=== PATIENT | male | born 1945 | race Caucasian/White ===

== ENCOUNTER 2024-02-09 11:00 | Outpatient (AMB) | payer MEDICARE, SELFPAY ==
--- OUTSIDE RECORDS SUMMARY | 2024-02-09 11:02 | XMS_ITS | Encounter Summary ---
Author Name [facility] [facility] [place] [facility] [place] Address [address] [place] [address] Care Team Providers Care School Crossing Guard Name Role Phone RYAN PEREZ Primary Care Provider Unavailabl e Insurance Providers: All historical and current Section Date Range: From patient's date of to the date document was created. This section includes the names of all active insurance providers for the patient. Insurance Provider Type of Coverage Plan Name Start of Policy Coverage End of Policy Coverage Group Number Member ID Insurance Provider's Telephone Number Policy Yu's Name Patient's Relationship to Policy Yu [facility] MEDICARE SUPPLEMEN NAA MEDEX 2 Aug 16, 2014 [id number] CHELLE MENDOZA HARD PATIENT [facility] MEDICARE SUPPLEMEN NAA [facility] Aug 16, 2014 [id number] CHELLE MENDOZA HARD PATIENT MEDICARE (WNR) MEDICARE (M) PART B June 16, 2012 PART B [id number] CHELLE MENDOZA HARD PATIENT MEDICARE (WNR) MEDICARE (M) PART A Feb 16, 2011 PART A [id number] CHELLE MENDOZA PATIENT Selected Encounter This section includes the information on record at [place] for the Encounter. Date/Time Encounter Type Encounter Description Reason Provider Source May 20, 2023 01:00 PM HEARING AID CHECK BOTH EARS AUDIOLOGY ICD-10-CM Z46.1 Encounter for fitting and adjustment of hearing aid VENTURA BURROUGHS Encounter Template Text not used by [place] Assessments - Encounter Diagnoses This section includes the primary and secondary diagnoses documented for the Encounter. Date/Time Primary/Secondary Diagnosis Diagnosis Name Provider Source May 20, 2023 01:25 PM PRIMARY Encounter for fitting and adjustment of hearing aid NAILA GIRON RUMA [facility] May 20, 2023 01:25 PM SECONDARY Sensorineural hearing loss, bilateral NAILA GIRON RUMA [facility] Plan of Treatment: Future Appointments (+ 6 months) and Future Tests (+/- 45 days) The Plan of Treatment section includes future care activities for the patient from all [place] [facility]. This section includes future appointments and future orders which are active, pending or scheduled. Future Appointments This section includes appointments that were scheduled to occur 6 months from the date of the Encounter, up to a maximum of 20 appointments. The data comes from all [place] treatment facilities. Appointment Date/Time Appointment Type Appointme nt Facility Name Nov 09, 2023 01:00 PM AMBULATORY - REHAB MEDICIN E [facility] Social History: Smoking Status (Most current) and Tobacco Use (All prior to encounter date) This section includes the most current, and the historical, smoking and tobacco- related health factors from the [place] facility where the Encounter took place. Current Smoking Status This section includes the most current smoking, or tobacco-related health factor, from the [place] facility where the Encounter took place. Date/Time Current Smoking Status Comment Dorian ity Feb 22, 2019 10:40 AM [place]-TOBACCO QUIT < 1 YEAR [facility] Tobacco Use History This section includes a history of the smoking, or tobacco-related health factors, that were collected on or before the date of the Encounter. The data comes from the [place] facility where the Encounter took place. Date/Time Smoking Status/Tobacco Use Comment F alicia Feb 22, 2019 10:40 AM [place]-TOBACCO QUIT < 1 YEAR [facility] Encounter Notes: All associated encounter notes This section contains the clinical notes associated to the Encounter. Date/Time Encounter Note(s) Provider Source May 20, 2023 01:17 PM AUDIOLOGY NOTE: LOCAL TITLE: AUDIOLOGY [facility] STANDARD TITLE: AUDIOLOGY NOTE DATE OF NOTE: MAY 20, 2023@13:17 ENTRY DATE: MAY 20, 2023@13:17:53 AUTHOR: ROSALIO GIRON COSIGNER: VENTURA BURROUGHS URGENCY: STATUS: COMPLETED AUDIOLOGY [facility] Has ADDENDA May 20, 2023 History/Background: Dallas was seen for a hearing aid follow up, unaccompanied. Dallas was scheduled today for hearing aid maintenance. Dallas brought in two sets of hearing aids and asked to have them paired up. Hearing aids: [employer] EVOLV AI POWER + BTE 13s Serial Numbers: [id number] Date Issued: 04/16/2022 AND Hearing aids: [employer] IQ i2400 Power+ BTEs Serial Numbers: [id number] Date Issued: 04/22/2019 Hearing aid check: All 4 hearing aids were cleaned and checked. Replaced tubes, tonehooks and microphone covers. Back up aids now have dark brown microphone covers so Dallas can tell them apart. Otoscopy: clear canal right ear and nearly occluding cerumen left ear. stated he is seeing his PCP tomorrow and will ask to have cerumen removed. Plan: RTC order placed for 4-5 mon maintenance on 11/09/2023 @ 1300. /es/ ROSALIO GIRON Audiology Health Tissue Recovery Technician Signed: 05/20/2023 13:26 /jed/ VENTURA Ruiz, [facility]-A CHIEF, AUDIOLOGY/CHIEF ENGINEER WATERWORKS Cosigned: 05/20/2023 13:27 Receipt Acknowledged By: 05/20/2023 13:28 /es/ CAROLYN HAHN SUPERVISORY POKER ROOM MANAGER 05/20/2023 ADDENDUM STATUS: COMPLETED Suicide Screen: C-SSRS Screening [place]-Suicide Severity Rating Scale (C-SSRS Screener) 1. Over the past month, have you wished you were or wished you could go to sleep and not wake up? No 2. Over the past month, have you had any actual thoughts of killing yourself? No 3. Over the past month, have you been thinking about how you might do this? Response not required due to responses to other questions. 4. Over the past month, have you had these thoughts and had some intention of acting on them? Response not required due to responses to other questions. 5. Over the past month, have you started to work out or worked out the details of how to kill yourself? Response not required due to responses to other questions. 6. If yes, at any time in the past month did you intend to carry out this plan? Response not required due to responses to other questions. 7. In your lifetime, have you ever done anything, started to do anything, or prepared to do anything to end your life (for example, collected pills, obtained a gun, gave away valuables, went to the roof but didn't jump)? No 8. If YES, was this within the past 3 months? Response not required due to responses to other questions. /jed/ ROSALIO GIRON Audiology Health Tissue Recovery Technician Signed: 05/20/2023 13:27 /jed/ VENTURA Ruiz, [facility]-A CHIEF, AUDIOLOGY/CHIEF ENGINEER WATERWORKS Cosigned: 05/21/2023 13:39 ROSALIO GIRONRBrandon ADAIR [facility]
--- OUTSIDE RECORDS SUMMARY | 2024-02-09 11:02 | XMS_ITS ---
Author Name [facility] [place] [facility] Address [address] [place] [address] Care Team Providers Care Agency Director Name Role Phone RYAN PEREZ Primary Care [...] Yu's Name Patient's Relationship to Policy Yu [facility] MEDICARE SUPPLEMEN NAA MEDEX 2 Aug 16, 2014 [id number] CHELLE MENDOZA HARD PATIENT [facility] MEDICARE SUPPLEMEN NAA [facility] Aug 16, 2014 [id number] [phone] CHELLE MENDOZA HARD PATIENT MEDICARE (WNR) MEDICARE (M) PART B June 16, 2012 PART B [id number] CHELLE MENDOZA HARD PATIENT MEDICARE (WNR) MEDICARE (M) PART A Feb 16, 2011 PART A [id number] [phone] CHELLE MENDOZA PATIENT Selected Encounter This section includes the information on record at [place] for the Encounter. Date/Time Encounter Type Encounter Description Reason Provider Source Nov 09, 2023 01:00 PM HEARING AID REPAIR/MODIFYIN G AUDIOLOGY ICD-10-CM Z46.1 Encounter for fitting and adjustment of hearing aid SHANI HE Sade Encounter Template Text not used by [place] Assessments - Encounter Diagnoses This section includes the primary and secondary diagnoses documented for the Encounter. Date/Time Primary/Secondary Diagnosis Diagnosis Name Provider Source Nov 09, 2023 01:23 PM PRIMARY Encounter for fitting and adjustment of hearing aid NAILA GIRON RUMA [facility] Nov 09, 2023 01:23 PM SECONDARY Sensorineural hearing loss, bilateral NAILA GIRON RUMA [facility] Plan of Treatment: Future Appointments (+ 6 months) and Future Tests (+/- 45 days) The Plan of Treatment section includes future care activities for the patient from all [place] [facility]. This section includes future appointments and future orders which are active, pending or scheduled. Future Appointments This section includes appointments that were scheduled to occur 6 months from the date of the Encounter, up to a maximum of 20 appointments. The data comes from all [place] treatment facilities. Appointment Date/Time Appointment Type Appointme nt Facility Name Apr 18, 2024 01:00 PM AMBULATORY - REHAB MEDICIN E [facility] Social History: Smoking Status (Most current) and Tobacco Use (All prior to encounter date) This section includes the most current, and the historical, smoking and tobacco- related health factors from the [place] facility where the Encounter took place. Current Smoking Status This section includes the most current smoking, or tobacco-related health factor, from the [place] facility where the Encounter took place. Date/Time Current Smoking Status Comment Facil ity Feb 22, 2019 10:40 AM [place]-TOBACCO QUIT < 1 YEAR [facility] Tobacco Use History This section includes a history of the smoking, or tobacco-related health factors, that were collected on or before the date of the Encounter. The data comes from the [place] facility where the Encounter took place. Date/Time Smoking Status/Tobacco Use Comment F acyosi Feb 22, 2019 10:40 AM [place]-TOBACCO QUIT < 1 YEAR [facility] Encounter Notes: All associated encounter notes This section contains the clinical notes associated to the Encounter. Date/Time Encounter Note(s) Provider Source Nov 09, 2023 07:55 AM AUDIOLOGY NOTE: LOCAL TITLE: AUDIOLOGY HEALTH FEEDER WORKER POWER UNIT OPERATOR STANDARD TITLE: AUDIOLOGY NOTE DATE OF NOTE: NOV 09, 2023@07:55 ENTRY DATE: NOV 09, 2023@07:55:44 AUTHOR: ROSALIO GIRON COSIGNER: SHANI HE URGENCY: STATUS: COMPLETED November 09, 2023 History/Background: was seen for a hearing aid follow up, unaccompanied. The presented today for routine maintenance on his hearing aids. Hearing aids: [employer] EVOLV AI POWER + BTEs Serial Numbers: [id number] Battery Size: 13 Date Issued: 04/16/2022 AND Hearing aids: [employer] IQ i2400 Power+ BTEs Serial Numbers: [id number] Battery Size: 13 Date Issued: 04/22/2019 Hearing aid check: Both sets of hearing aids were cleaned and checked. Replaced TRS tubes, tonehooks, mlacolm covers and batteries. Biologic check was good. Battery supply was ordered today per Veterans request. Plan: The [place] was scheduled for routine maintenance on 04.18.2024 @ 1300. RTC ordered entered. /jed/ ROSALIO GIRON Audiology Health Data Integration Analyst Signed: 11/09/2023 13:25 /jed/ Torie Pimentel CCC-A Paint Sprayer Sandblaster Cosigned: 11/09/2023 14:29 Receipt Acknowledged By: 11/09/2023 14:44 /jed/ CAROLYN HAHN SUPERVISORY TOURIST HOME KEEPER ROSALIO GIRON [facility]
--- OUTSIDE RECORDS SUMMARY | 2024-02-09 11:02 | XMS_ITS | Continuity of Care Document ---
Author Name [facility] Organization [facility] Care Team Providers Care Product Safety Associate Name Role Phone [facility] Unavailable Unavailable Problems Combined list of problems from Department of [facility] and [facility] facilities. It does not include entries that were removed or entered in error. Problem Status Onset Date Problem Type Date of Resolution Comments Source Carcinoma of lung Active Condition Mar 03, 2019 Entered By: VIRGINIA PEREZ Comment: patient has right upper lobe lobectomy in 2012 [facility] Chronic obstructive lung disease Active Condition Mar 03, 2019 Entered By: VIRGINIA PEREZ Comment: stage 2 [facility] Hearing loss Active Condition [facility] Diagnosis: ICD-10-CM Z46.1 Encounter for fitting and adjustment of hearing aid Active Diagnosis [facility] Medications Combined list of outpatient medications from Department of [facility] and [facility] facilities.Medications provided include 1) outpatient medications from the last 15 months, and 2) patient-reported medications. Medication Details Route Status Patient Instructions Prescription Expires Prescription Number Last Dispense Date Ordering Provider Order Date Order Qty Source FLUTICASONE 100/UMECLID INIUM 62.5/VILANT JUANIS 25MCG/ACTUA T INH,30 INHALE 1 INHALATI ON BY MOUTH ONCE DAILY RESPIR ATORY (INHAL ATION) ACTIVE ALAYNA PEREZ [address] [facility] Immunizations Combined list of available immunizations from the Department of [facility] and [facility] facilities. Immunization Series Date Given Administered By Site Reaction Lot Number CVX Code Drug Seed Yeast Operator Status Comments Source COVID-19 (Optimizely), MRNA, LNP-S, PF, 30 MCG/0.3 ML DOSE 2 2020 208 complet ed PFR; [id number]; [address] [facility] COVID-19 (PFIZER), MRNA, LNP-S, PF, 30 MCG/0.3 ML DOSE 1 2020 208 complet ed PFR; [id number]; [address] [facility] INFLUENZA, SEASONAL, INJECTABLE [address] [facility] Encounters Combined list of: 1) Encounters from Department of [facility] facilities going back up to thelast 18 months. 2) Encounters from the Department of [facility] facilities going back up to 280 months. Location Location Details Encounter Type Encounter Number Reason For Visit Attending Provider ADM Date DC Date Status Disposition Source [facility] HEARING AID CHECK BOTH EARS [id number] [id number] Diagnos is: ICD-10- CM Z46.1 Encount er for fitting and adjustm ent of hearing aid<br/ > ADAM BURROUGHS L 05/19 [facility] HEARING AID REPAIR/MOD IFYING [id number] Diagnos is: ICD-10- CM Z46.1 Encount er for fitting and adjustm ent of hearing aid<br/ > KRISTINA HE L 11/[address] [facility] Social History Combined list of available smoking, tobacco, and other social history from [facility] and [facility] facilities. Social History Type Response Date Comment Sourc e Tobacco smoking status NHIS [place]-TOBACCO QUIT < 1 YEAR 02/22/2019 [facility] History of tobacco use [place]-TOBACCO FORMER USER 02/22/2019 [facility] Plan of Care List of future care activities from Department of [facility] facilities. Additional future care activities may be listed in the Assessment and Plan section. Date/Time Care Activity Care Activity Detail Facili ty 04/18/2024 AMBULATORY - REHAB MEDICINE AMBULATORY - REHAB MEDICINE [facility]
--- NOTE | 2024-02-09 11:05 | MHC.OFFVIS ---
Intake Visit Reasons: Prostate Ca/HX UTI,Retention,BPH Intake Note: Patient is present for PROSTATE ca/hx UTI,retention,bph Urology Medication:none Antibiotic Allergy:penicillin Blood Thinner:none TODAY'S PVR:11MLS Copy Worker Required: No Allergies Penicillins Allergy (Mild, Verified 02/09/24 11:06) Unknown HPI Comments Details: Steven is a pleasant male. He is a patient of Dr Rice. He is seen for the following urologic conditions. - urinary incontinence - advanced prostate cancer Here for 2nd opinion Urinary incontinence following BPH Procedure Using 3-4 pads per day Had been offered artificial sphincter placement by another urologist Based on the patient's age, manual dexterity, and future care needs use of an artificial sphincter in the over 75-year-old age group is associated with increased risk of adverse outcomes and difficulty with sphincter cycling We discussed artificial sling If he has any coaptation of his external prostatic sphincter the sling is likely to drop pad use from 3-4 down to 1-2 He does report dryness overnight Has dry periods during the day Advanced prostate cancer - SPC Managed on combination antiandrogen and GnRH Obtains antiandrogen through [employer] oncology [facility] Medical History (Updated 02/15/24 @ 10:59 by Brian Fuhcs MD) Alcohol abuse, in remission Gonzalez's palsy Migraine headache COPD (chronic obstructive pulmonary disease) Hearing loss Warts UTI (urinary tract infection) H/O urinary retention History of urinary frequency Prostate cancer Peyronie's disease Dysuria Nodular prostate BPH loc w urin obs/LUTS Constipation Bladder outlet obstruction Hyperactivity of bladder Surgical History (Updated 02/03/24 @ 11:36 by PRESTON Gilbert) History of arthroplasty of right shoulder History of bowel resection History of tonsillectomy History of eye surgery S/P TURP (status post transurethral resection of prostate) Social History (Updated 02/03/24 @ 11:37 by PRESTON Gilbert) Alcohol intake: former Comment: recovering Patient Tobacco Use Status: Former Tobacco user Review of Systems Const Denies chills and Denies fever(s) Card Reports no additional complaints and Denies syncope Resp Denies cough GI Denies abdominal pain and Denies heartburn Reports as per HPI and Denies change in libido Neuro Denies syncope Psych Denies change in libido Endo Denies change in libido Physical Exam Const General: cooperative, healthy appearing, comfortable and no acute distress Orientation/consciousness: patient oriented x3 HEENT Face and sinus: Yes normal facial exam Mouth: moist mucous membranes Neck Neck: Yes normal visual inspection, Yes full ROM and Yes trachea midline Chest Chest palpation & inspection: normal inspection of the chest Resp Effort & Inspection: normal respiratory effort, able to speak in complete sentences and no respiratory distress GI Inspection: Yes normal to inspection Back/Spine/Pelvis Cervical Spine: normal cervical lordosis Thoracic/Lumbar Spine: thoracic and lumbar spine normal to inspection Skin General skin exam: no rashes or lesions noted Neuro General: patient oriented x3, gait normal, tone normal and moves all extremities Extrem General: Yes normal to inspection and Yes capillary refill normal Office Procedures Post Void Residual Post Residual Void Post Void Residual (PVR): 0 71818-Dqew Void Residual by ultrasound Post Void Residual Post Residual Void Post Void Residual (PVR): 11 70814-Kwal Void Residual by ultrasound Results AMB Urinalysis, Automated UA Leukoctes 0 Tania/uL Last Edit by YAHAIRA Schmitt on 02/09/24 11:35 UA Leukoctes previously reported as 70 Demario Nova 02/09/24 11:35 UA Nitrite Negative Last Edit by YAHAIRA Schmitt on 02/09/24 11:28 UA Urobilinogen 1 mg/dL Last Edit by YAHAIRA Schmitt on 02/09/24 11:35 UA Urobilinogen previously reported as 0.2 Demario Nova 02/09/24 11:35 UA Protein 15 mg/dL Last Edit by YAHAIRA Schmitt on 02/09/24 11:35 UA Protein previously reported as 30 Demario Nova 02/09/24 11:35 UA pH 6.0 Last Edit by YAHAIRA Schmitt on 02/09/24 11:28 UA Blood 0 Taras/uL Last Edit by YAHAIRA Schmitt on 02/09/24 11:35 UA Blood previously reported as 80 Demario Nova 02/09/24 11:35 UA Specific Denhoff 1.025 Last Edit by YAHAIRA Schmitt on 02/09/24 11:35 UA Specific Denhoff previously reported as 1.015 Demario Nova 02/09/24 11:35 UA Ketone Positive Last Edit by YAHAIRA Schmitt on 02/09/24 11:35 UA Ketone previously reported as Negative Demario Nova 02/09/24 11:35 UA Bilirubin 0 mg/dL Last Edit by YAHAIRA Schmitt on 02/09/24 11:28 UA Glucose 0 mg/dL Last Edit by YAHAIRA Schmitt on 02/09/24 11:35 UA Glucose previously reported as 1000 Demario Nova 02/09/24 11:35 Results Reviewed Results Reviewed: Laboratory Last Values Urine pH (Auto) 6.0 02/09/24 11:27 Specific Denhoff (Auto) 1.025 02/09/24 11:27 Urine Protein (Auto) 15 mg/dL 02/09/24 11:27 Glucose (UA)(Auto) 0 mg/dL 02/09/24 11:27 Urine Ketones (Auto) Positive 02/09/24 11:27 Urine Blood (Auto) 0 Taras/uL 02/09/24 11:27 Urine Nitrite (Auto) Negative 02/09/24 11:27 Urine Bilirubin (Auto) 0 mg/dL 02/09/24 11:27 Urine Urobilinogen (Auto) 1 mg/dL 02/09/24 11:27 Leukocyte Esterase (Auto) 0 Tania/uL 02/09/24 11:27 Assessment & Plan Assessment & Plan (1) Urinary incontinence: Code(s): R32 - Unspecified urinary incontinence Category: Medical Plan Office cystoscopy Consider sling procedure Orders: Orders AMB Urinalysis Automated 02/09/24 Z13.9 - Encounter for screening, unspecified Patient Instructions: Imaging studies, laboratory and physical exam results were discussed and reviewed in detail. No major barriers to patient understanding were identified. An opportunity to ask questions regarding the treatment plan was provided. All questions were answered. The patient expressed understanding and agreement with the above treatment plan. The patient is aware they should contact our office by phone for worsening of their current condition or the appearance of new urologic symptoms. Compliance is encouraged with any medications and followup testing that is ordered. It is a privilege to participate in the urologic care of your patient. If you have any questions or concerns regarding treatment for the above conditions, or other urologic issues, please do not hesitate to contact me. The office telephone contact is [phone]. This note is constructed using voice recognition software. While every effort has been made to ensure accuracy mechanical ordnance assembler errors may have been included. Yours sincerely, Dr Brian Fuchs MD, [facility] - Urology Providers of Expert, Compassionate Care for the Genitourinary System Coding Level of Care Code New Pt Level 4 (33588) Diagnoses Urinary incontinence R32 CPT Codes Post Residual Void - PVR CPT Code: 91259-Mfpz Void Residual by ultrasound ([id number]) Post Residual Void - PVR CPT Code: 08021-Niec Void Residual by ultrasound ([id number])
== END 2024-02-09 12:17 | disposition home or self-care (01) ==
PROVIDERS: PCP Internal Medicine; Visit Provider Urology
DX: Z13.9 Encounter for screening, unspecified (principal)

== ENCOUNTER → 2024-02-09 11:00 | Outpatient (BNVA) | payer MEDICARE, SELFPAY | PROVIDERS: PCP Internal Medicine; Visit Provider Urology | DX: C61 Malignant neoplasm of prostate (principal); N40.1 Benign prostatic hyperplasia with lower urinary tract symptoms; N13.8 Other obstructive and reflux uropathy; R33.8 Other retention of urine; R32 Unspecified urinary incontinence | CPT/HCPCS: 51798; 81003; 99202 ==

== ENCOUNTER 2024-03-29 10:47 | Outpatient (AMB) | payer MEDICARE, SELFPAY ==
--- NOTE | 2024-03-29 10:47 | A.OFFVIS_ITS ---
Intake Visit Reasons: Cysto/Discuss Sling Procedure Intake Note: Patient is present for Cystoscopy/DISCUSS SLING PROCEDURE Urology Medication:NONE Antibiotic Allergy:PENICILLIN Blood Thinner:NONE Lot:[id number] Exp:12/20/26 Purchasing Contracting Clerk Required: No Allergies Penicillins Allergy (Mild, Verified 03/29/24 10:49) Unknown HPI Comments Details: Steven is a pleasant male. He is a patient of Dr Rice. He is seen for the following urologic conditions. - urinary incontinence - advanced prostate cancer Here for cystoscopy Able to partially coapted external urethral sphincter Recommend artificial sling placement Did have limited amount of radiation exposure to prostate prior to TURP (12 of 40 sessions) ability for that Elicia ROCA, Sharon B, Vannessa Borrero. AdVance male sling in irradiated patients with stress urinary incontinence. Can J Urol. 2010;18(6):6013-7. PMID: [id number]. Urinary incontinence following BPH Procedure Using 3-4 pads per day Had been offered artificial sphincter placement by another urologist Based on the patient's age, manual dexterity, and future care needs use of an artificial sphincter in the over 75-year-old age group is associated with increased risk of adverse outcomes and difficulty with sphincter cycling We discussed artificial sling If he has any coaptation of his external prostatic sphincter the sling is likely to drop pad use from 3-4 down to 1-2 He does report dryness overnight Has dry periods during the day Advanced prostate cancer - SP Managed on combination antiandrogen and GnRH Obtains antiandrogen through [facility] oncology Initially had been treated with radiation but only tolerated 12 doses [facility] Medical History (Updated 03/29/24 @ 12:35 by Brian Fuchs MD) Alcohol abuse, in remission Gonzalez's palsy Migraine headache COPD (chronic obstructive pulmonary disease) Hearing loss Warts UTI (urinary tract infection) H/O urinary retention History of urinary frequency Prostate cancer Peyronie's disease Dysuria Nodular prostate BPH loc w urin obs/LUTS Constipation Bladder outlet obstruction Hyperactivity of bladder Surgical History (Updated 02/03/24 @ 11:36 by PRESTON Gilbert) History of arthroplasty of right shoulder History of bowel resection History of tonsillectomy History of eye surgery S/P TURP (status post transurethral resection of prostate) Social History (Updated 02/03/24 @ 11:37 by PRESTON Gilbert) Alcohol intake: former Comment: recovering Patient Tobacco Use Status: Former Tobacco user Review of Systems Const Denies chills and Denies fever(s) Card Reports no additional complaints and Denies syncope Resp Denies cough GI Denies abdominal pain and Denies heartburn Reports as per HPI and Denies change in libido Neuro Denies syncope Psych Denies change in libido Endo Denies change in libido Physical Exam Const General: cooperative, healthy appearing, comfortable and no acute distress Orientation/consciousness: patient oriented x3 HEENT Face and sinus: Yes normal facial exam Mouth: moist mucous membranes Neck Neck: Yes normal visual inspection, Yes full ROM and Yes trachea midline Chest Chest palpation & inspection: normal inspection of the chest Resp Effort & Inspection: normal respiratory effort, able to speak in complete sentences and no respiratory distress GI Inspection: Yes normal to inspection Back/Spine/Pelvis Cervical Spine: normal cervical lordosis Thoracic/Lumbar Spine: thoracic and lumbar spine normal to inspection Skin General skin exam: no rashes or lesions noted Neuro General: patient oriented x3, gait normal, tone normal and moves all extremities Extrem General: Yes normal to inspection and Yes capillary refill normal Office Procedures Cystoscopy Consent Discussed risk and benefit or proposed procedure with the patient. Information consent for procedure given to the patient. Discussed technical aspects, risks, benefits and alternatives in full. Addressed all of the patient's questions and concerns regarding the procedure. The patient demonstrated knowledge and understanding. They wish to proceed with this procedure. Preparation The patient was prepped in the usual manner. A childcare center director was present and in the room. Genitalia was prepped with betadine solution in a sterile manner. Lidocaine Jelly 2% was placed into the urethra and 16Fr flexible Olympus cystoscope was inserted into the meatus after adequate lubrication. Procedure No abnormality of the anterior posterior urethra. Mild narrowing at prostatic apex Able to partially clamped external urethral sphincter [id number] DISPOSABLE SCOPE URO-G FLEXIBLE SCOPE Procedure code (CPT) selection complete Office Meds lidocaine HCl 2 % mucosal jelly in applicator Performing Provider: Brian Fuchs MD [place] Administered by: Jelani Ross LPN on 03/29/24 11:26 Dose Route Admin Location Dispensed Lot Number Expiration Date [facility] Hydrography Teacher 10 mL intra-urethral 10 mL nitrofurantoin monohydrate/macrocrystals 100 mg capsule Performing Provider: Brian Fuchs MD [place] [facility] Administered by: Jelani Ross LPN on 03/29/24 11:26 Dose Route Admin Location Dispensed Lot Number Expiration Date [facility] Hydrography Teacher 100 mg PO 1 cap Results AMB Urinalysis, Automated UA Leukoctes 0 Tania/uL Last Edit by YAHAIRA Schmitt on 03/29/24 11:46 UA Nitrite Negative Last Edit by YAHAIRA Schmitt on 03/29/24 11:46 UA Urobilinogen 3.5 mg/dL Last Edit by YAHAIRA Schmitt on 03/29/24 11:4 6 UA Protein 15 mg/dL Last Edit by YAHAIRA Schmitt on 03/29/24 11:46 UA pH 6.0 Last Edit by YAHAIRA Schmitt on 03/29/24 11:46 UA Blood 0 Taras/uL Last Edit by YAHAIRA Schmitt on 03/29/24 11:46 UA Specific [place] 1.015 Last Edit by YAHAIRA Schmitt on 03/29/24 11: 46 UA Ketone Negative Last Edit by YAHAIRA Schmitt on 03/29/24 11:46 UA Bilirubin 0 mg/dL Last Edit by YAHAIRA Schmitt on 03/29/24 11:46 UA Glucose 0 mg/dL Last Edit by YAHAIRA Schmitt on 03/29/24 11:46 Assessment & Plan Assessment & Plan (1) Urinary incontinence: Code(s): R32 - Unspecified urinary incontinence Category: Medical (2) Stress incontinence after surgical procedure: Code(s): N99.89 - Other postprocedural complications and disorders of genitourinary system; N39.3 - Stress incontinence (female) (male) Category: Medical Plan Risks, benefits and alternatives to therapy were discussed. These include but are not limited to infection, bleeding, damage to local organs and tissues, need for further interventions. Anesthetic risks regarding cardiac arrhythmia, blood clots, and potential mortality were discussed. The patient understands the typical recovery time and the outpatient nature of the procedure. After consideration of these risks the patient gives full informed consent and they wish to move ahead with the procedure. - male sling placement Orders: Orders AMB Cystoscopy Today R32 - Unspecified urinary incontinence AMB Urinalysis Automated Today Z13.9 - Encounter for screening, unspecified Patient Instructions: This note is constructed using voice recognition software. While every effort has been made to ensure accuracy pocketed spring machine operator errors may have been included. Imaging studies, laboratory and physical exam results were discussed and r eviewed in detail. No major barriers to patient understanding were identified. An opportunity to ask questions regarding the treatment plan was provided. All questions were answered. The patient expressed understanding and agreement with the above treatment plan. The patient is aware they should contact our office by phone for worsening of their current condition or the appearance of new urologic symptoms. Compliance is encouraged with any medications and followup testing that is ordered. It is a privilege to participate in the urologic care of your patient. If you have any questions or concerns regarding treatment for the above conditions, or other urologic issues, please do not hesitate to contact me. The office telephone contact is [phone]. Sincerely, Dr Brian Fuchs MD, [facility] - Urology Compassionate Specialist Care for the Genitourinary System Coding Level of Care Code Est Pt Level 4 (58018) Diagnoses Urinary incontinence R32 Stress incontinence after surgical procedure N99.89; N39.3 CPT Codes Cystoscopy - CPT: 22523-[id number] ([id number])
--- OUTSIDE RECORDS SUMMARY | 2024-03-29 12:04 | XMS_ITS | Data Portability ---
Author Organization [facility], [facility] Address [address] [place] [address] Care Team Providers Care Concessions Manager Name Role Phone DIEGO RODRIGUEZ Primary Care Provider [phone] Assessment No assessment recorded. Plan of Treatment Reminders Order Date Submit Date Provider Last Modified By Organization Details Last Modified Time Details Appointments RECHECK 15 2024 10:45A M Dav Kathleen PA-C Not available Not available Not available Lab None recorded . Referral None recorded . Procedures None recorded . Surgeries None recorded . Imaging None recorded . Medication Orders None recorded . Patient TargetsNo targets recorded. Patient InstructionsNo instructions recorded. Reason for Referral None Reported. 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 Procedures Surgical History Date Name Laterality Status Provider Name and Address Organization Details Recorded Time 4 PM Shoulder Kenalog 2cc Injection Unilateral cancelled Hema Sierra MD [address], [place], [address], [facility] - [facility] 11/26/2023 07:55:02 4 Hip Kenalog 1cc Injection, Bilateral completed Dav Kathleen PA-C [address], [place], [address], [facility] 11/26/2023 16:22:53 4 Sports Shoulder 4&1 completed Dav Kathleen PA-C [address], [place], [address], [facility] 11/26/2023 16:22:38 Imaging Results None recorded. Procedure Notes None recorded. Medical Equipment None Reported. Allergies Allergen ID Allergen Name Allergen Category Reaction Reaction Severity Criticality Documentation Date Start Date Code Code System Note Provider Name and Address Organization Details Recorded Time 73767 Zoloft medicatio n Not available Not available Not available 04/20/20232005 91543 RxNorm Not Available [facility] 4 15:13:16 91083 Product containin g penicilli n and antibioti c (product) medicatio n Not available Not available Not available 04/20/20232021 38705 05 SNOMED Not Available [facility] 4 15:13:16 Medications Name Sig Start Date Stop Date Status Note LastModified by Organization Details LastModified Time atorvastati n 80 mg tablet TAKE 1 TABLET BY MOUTH DAILY AT BEDTIME,X 30 DAYS active Not Available Not Available No t Available carvedilol 6.25 mg tablet TAKE 1 TABLET BY MOUTH TWICE A DAY WITH FOOD FOR 30 DAYS active Not Available Not Available No t Available prednisone 10 mg tablet PLEASE SEE ATTACHED FOR DETAILED DIRECTION S active Not Available Not Available No t Available ipratropium 0.5 mg-albutero l 3 mg (2.5 mg base)/3 mL nebulizatio n soln TAKE 1 NEBULIZER (INHALATI ON) EVERY 6 HOURS NEEDED FOR TROUBLED BREATHING active Not Available Not Available No t Available cetirizine 10 mg tablet PLEASE SEE ATTACHED FOR DETAILED DIRECTION S active Not Available Not Available No t Available azithromyci n 250 mg tablet TAKE 2 TABLETS BY MOUTH TODAY, THEN TAKE 1 TABLET DAILY FOR 4 DAYS DIRECTED active Not Available Not Available No t Available benzonatate 200 mg capsule TAKE 1 CAPSULE NEEDED ORALLY THREE TIMES A DAY NEEDED 5 DAYS active Not Available Not Available No t Available prochlorper azine maleate 5 mg tablet TAKE 1 TABLET BY MOUTH EVERY 6 HOURS NEEDED FOR NAUSEA active Not Available Not Available No t Available prednisone 20 mg tablet TAKE 2 TABLETS BY MOUTH EVERY DAY FOR 5 DAYS active Not Available Not Available No t Available isosorbide mononitrate ER 30 mg tablet,exte nded release 24 hr TAKE 1 TABLET BY MOUTH EVERY DAY IN THE MORNING active Not Available Not Available No t Available chlorthalid one 25 mg tablet TAKE 1 TABLET BY MOUTH EVERY DAY IN THE MORNING WITH FOOD active Not Available Not Available No t Available ciprofloxac in 500 mg tablet TAKE ONE TABLET BY MOUTH TWICE A DAY FOR 14 DAYS. active Not Available Not Available No t Available sulfamethox azole 800 mg-trimetho prim 160 mg tablet TAKE 1 TABLET BY MOUTH TWICE A DAY FOR 5 DAYS active Not Available Not Available No t Available pseudoephed rine-guaife nesin ER 80-700 mg tablet,exte nded release Percocet 5-325MG Tablet 1 every 4 - 6 hours as needed 03/01 completed Statu s: 'Disc ontin ued'; Not Available Not Available Not Available prednisone 50 mg tablet TAKE 1 TABLET BY MOUTH EVERY DAY FOR 4 DAYS active Not Available Not Available No t Available nitroglycer in 0.4 mg sublingual tablet PLEASE SEE ATTACHED FOR DETAILED DIRECTION S active Not Available Not Available No t Available albuterol sulfate HFA 90 mcg/actuati on aerosol inhaler INHALE 2 PUFFS INHALATIO N EVERY 4 HOURS, NEEDED WHEEZING/ SHORTNESS OF BREATH active Not Available Not Available No t Available methylpredn isolone 16 mg tablet PLEASE SEE ATTACHED FOR DETAILED DIRECTION S active Not Available Not Available No t Available calcium 600 mg (as carbonate)- vitamin D3 10 mcg (400 unit) tablet TAKE 1 TABLET BY MOUTH TWICE A DAY active Not Available Not Available No t Available oxycodone HCl-oxycodo ne-ASA RX GIVEN AT [facility], AT TIME OF SURGERY 03/01 completed Statu s: 'Disc ontin ued'; Not Available Not Available Not Available Xtandi 40 mg capsule active Not Available Not Available N ot Available potassium chloride ER 20 mEq tablet,exte nded release TAKE 1 TABLET BY MOUTH TWICE A DAY FOR 3 DAYS active Not Available Not Available No t Available Bevespi Aerosphere 9 mcg-4.8 mcg HFA aerosol inhaler 2 PUFFS INHALATIO N EVERY 12 HOURS active Not Available Not Available No t Available Vitals Date Recorded Body height Provider Name an d Address Organization Details Last Updated DateTime 11/26/2023 180.34 cm TESSA Sullivan [address], [place], [address], [place] - [facility] 11/26/2023 14:34:00 Date Recorded Body height Body mass index (BMI) Body weight Provider Name and Address Organization Details Last Updated DateTime 03/28/2024 180.34 cm 24.7 kg/m2 34837.85 g Selena Farias [facility] 03/28/2024 13:59:10 Social History None recorded. Functional Status None recorded. Mental Status None recorded. Family History Nothing Reported. Medical History No medical history recorded. Past Encounters Encounter ID Performer Location Encounter Start Date Encounter Closed Date Diagnosis/Indication Diagnosis SNOMED-CT Code Diagnosis ICD10 Code Diagnosis Note [id number] [facility] [address] [place] [address] 11/26/2023 14:18:48 12/22/2023 09:07:04 Impingement syndrome of right shoulder region [id number] 11045 M75.41 Trochanter ic bursitis of right hip 6654132425 99662 M70.61 Trochanter ic bursitis of left hip 9049583069 93507 M70.62 Health Concerns Section Related Observation LastModified by Organization Detai ls LastModified Time None Recorded Concern Status LastModified by Organization Details LastModified Time None Recorded Advance Directives Directive None Recorded Payers Encounter Date Sequence Insurance Name Policy Number Policy Yu Covered Member ID Yu Member ID Guarantor Name 11/26/2023 1 [place] [employer] Steven Ziegler [id number] Steven Ziegler 11/26/2023 2 [place] [id number] Steven Ziegler [id number] Steven Ziegler Notes Date Note Type Note Provider Name and Address Organization Details Recorded Time 11/26/2023 text/html I am seeing the patient today under the supervision of Dr. Wade who was available but who did not see the patient. Reason For Visit Patient comes to the office with know {{right* Left}} shoulder glenohumeral arthritis. The patient has done well with conservative management for their left shoulder pain. Has had increasing discomfort over the past several weeks without injury. Pain is generalized about the shoulder. Off and on discomfort is noted at night. Past Medical/Surgical History Current medications per intake sheet. Physical Findings The patient is well appearing, in no apparent distress, alert and oriented to person, place and time. Gait is symmetric. No significant swelling, warmth or erythema about either shoulder. There is mild tenderness to palpation about the shoulder. Active range of motion of the shoulder is limited with mild to moderate pain through mid range manipulations. 4/5 strength of the shoulder, but the rotator cuff seems to fire well. Good stability of the shoulder. Peripheral, vascular, lymphatic examination, skin, neurologic coordination, reflexes, sensation are within normal limits. Assessment glenohumeral arthritis of the {{right* Left}} shoulder. plan The patient has done well with conservative management in regards to the shoulder. Continued conservative management recommended. Moderating activities with the upper extremity recommended also. Injection was performed into the intra-articular space. Injected 80mg of Kenalog and 8cc of 1/4% Marcaine under sterile conditions into the left shoulder subacromial space. Patient tolerated the injection well. Moderating activities with the upper extremity recommended. The patient will follow up prn. Problem #2 Reason For VisitThe patient presents today for follow-up. Has known trochanteric bursitis of the hips bilaterally. Has had previous cortisone injection which gave relief until recently. Has had no recent trauma, no fevers or chills, no neurovascular changes. Presents today for further evaluation. Past Medical/Surgical HistoryPast medical history is reviewed per intake sheet. Physical Findings On physical examination, the patient is well appearing and in no apparent distress, alert and oriented x3. Gait is symmetric. Physician examination of the hips reveal the skin to be intact, normal musculature, continued tenderness on palpation over the greater trochanter. No pain with range of motion of the hip, has full range of motion, no crepitus noted with range of motion. No significant pain with straight leg raise. AssessmentSymptomat ic trochanteric bursitis of the hips bilaterally Plan I reviewed the findings with the patient, discussed different treatment options. The patient wishes to proceed with cortisone injection. Prior to giving injection, does understand the risks. Under sterile technique, given a cortisone injection with 4 cc 1/4 percent Marcaine, 40 mgs Kenalog. Tolerated this well. Monitor the effects and follow-up as needed. Dav Kathleen PA-C [address], [place], [address], [facility] - [facility] 11/26/2023 16:23:38
--- OUTSIDE RECORDS SUMMARY | 2024-03-29 12:04 | XMS_ITS | Clinical Summary ---
Author Organization [facility] it Address [address] [place] [address] Care Team Providers Care Metalworker Name Role Phone Andriy Rice MD Primary Care Provider [phone] Medical History Medical History Date Comments Other and unspecified alcoho l dependence, unspecified drinking behavior 09/09/2005 DX:Other and unspecified alc ohol dependence, unspecified drinking behavior; COMMENT: stopped ETOH 1981 Unspecified viral hepatitis C without hepatic coma 09/09/2005 DX:Unspecified viral hepatit is C without hepatic coma Family History Medical History Relation Name Comments Hypertension Mother Other: hole in her heart Mother Hypertension Sister 1 Relation Name Status Comments Mother Sister 1 Sister 2 Social History Tobacco Use Types Packs/Day Years Used Date Smoking Tobacco: Former Cigarettes Smokeless Tobacco: Never Alcohol Use Standard Drinks/Week Comments Not Asked 0 (1 standard drink = 0.6 oz pur e alcohol) Sex and Gender Information Value Date Recorded Sex Assigned at Not on file Legal Sex Male 10:02 AM EST Gender Identity Not on file Sexual Orientation Not on file Obstetrics History Plan of Treatment Health Maintenance Due Date Last Done Comments DTaP,Tdap,and Td Vaccines (1 - Tdap) 1952 Hepatitis A Vaccines (1 of 2 - Risk 2-dose series) 1965 Zoster Vaccines (1 of 2) 1996 Pneumococcal Vaccine: 50+ Ye ars (2 of 2 - PCV) 07/12/2005 07/12/2004 Hepatitis B Vaccines (1 of 3 - Risk 3-dose series) 2006 RSV Immunization Patients 60 + Years Old (1 - 1-dose 75+ series) 2021 Cholesterol Screening (Lipid Panel) 01/19/2022 Colorectal Cancer Screening: Stool Based Tests (FOBT/FIT) 01/19/2022 Depression Screening 01/19/2022 Falls Risk Assessment 01/19/2022 Hepatitis C Screening 01/19/2022 Social Influencers of Health Screening 01/19/2022 COVID-19 Vaccine ( - 2023-2 5 season) 2023 Influenza Vaccine (#1) 2023 HIB Vaccines Aged Out No longer eligi ble based on patient's age to complete this topic HPV Vaccines Aged Out No longer eligi ble based on patient's age to complete this topic IPV Vaccines Aged Out No longer eligi ble based on patient's age to complete this topic MMR Vaccines Aged Out No longer eligi ble based on patient's age to complete this topic Meningococcal ACWY Vaccine Aged Out N o longer eligible based on patient's age to complete this topic Meningococcal B Vacine Aged Out No lo nger eligible based on patient's age to complete this topic RSV Immunization Patients Un damian 20 months Aged Out No longer eligible b ased on patient's age to complete this topic Varicella Vaccines Aged Out No longer eligible based on patient's age to complete this topic Advance Directives Documents on File Type Date Recorded 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
== END 2024-03-29 11:53 | disposition home or self-care (01) ==
PROVIDERS: PCP Internal Medicine; Visit Provider Urology
DX: N99.89 Other postprocedural complications and disorders of genitourinary system (principal); N39.3 Stress incontinence (female) (male); Z13.9 Encounter for screening, unspecified
CPT/HCPCS: 52000; 99214

== ENCOUNTER → 2024-03-29 10:47 | Outpatient (BNVA) | payer MEDICARE, SELFPAY | PROVIDERS: PCP Internal Medicine; Visit Provider Urology | DX: R32 Unspecified urinary incontinence (principal); N99.89 Other postprocedural complications and disorders of genitourinary system; N39.3 Stress incontinence (female) (male) | CPT/HCPCS: 52000; 81003; 99212 ==

== ENCOUNTER 2024-06-13 08:42 | Day surgery (SDC) | payer MEDICARE, SELFPAY ==
[2024-06-09 13:11] VITALS: BMI 25.0
[2024-06-13] VITALS (8 sets, daily range): BP systolic 146–171; BP diastolic 70–91; PULSE 60–82; RESP 12–18; TEMP 36.1–36.7; O2SAT 93–97
--- OUTSIDE RECORDS SUMMARY | 2024-06-13 08:52 | XMS_ITS ---
Author Name [facility] Address [address] [place] [address] Care Team Providers Care Head Operator Name Role Phone RYAN PEREZ Primary Care [...] SUPPLEMEN NAA MEDEX 2 Aug 16, 2014 [id number] CHELLE MENDOZA HARD PATIENT [facility] MEDICARE SUPPLEMEN NAA [facility]LE [facility] Aug 16, 2014 [id number] CHELLE MENDOZA HARD PATIENT MEDICARE (WNR) MEDICARE (M) PART B June 16, 2012 PART B [id number] CHELLE MENDOZA HARD PATIENT MEDICARE (WNR) MEDICARE (M) PART A Feb 16, 2011 PART A [id number] CHELLE MENDOZA PATIENT Selected Encounter This section includes the information on record at [place] for the Encounter. Date/Time Encounter Type Encounter Description Reason Provider Source Apr 18, 2024 01:00 PM HEARING AID REPAIR/MODIFYIN G AUDIOLOGY ICD-10-CM Z46.1 Encounter for fitting and adjustment of hearing aid SHANI HE Sade Encounter Template Text not used by [place] Assessments - Encounter Diagnoses This section includes the primary and secondary diagnoses documented for the Encounter. Date/Time Primary/Secondary Diagnosis Diagnosis Name Provider Source Apr 18, 2024 01:20 PM PRIMARY Encounter for fitting and adjustment of hearing aid NAILA GIRON RUMA [facility] Apr 18, 2024 01:20 PM SECONDARY Sensorineural hearing loss, bilateral NAILA GIRON RUMA [facility] Plan of Treatment: Future Appointments (+ 6 months) and Future Tests (+/- 45 days) The Plan of Treatment section includes future care activities for the patient from all [place] [facility]. This section includes future appointments and future orders which are active, pending or scheduled. Future Appointments This section includes appointments that were scheduled to occur 6 months from the date of the Encounter, up to a maximum of 20 appointments. The data comes from all [place] treatment facilities. Appointment Date/Time Appointment Type Appointme nt Facility Name Sep 19, 2024 01:00 PM AMBULATORY - REHAB MEDICIN E [facility] Social History: Smoking Status (Most current) and Tobacco Use (All prior to encounter date) This section includes the most current, and the historical, smoking and tobacco- related health factors from the [place] facility where the Encounter took place. Current Smoking Status This section includes the most current smoking, or tobacco-related health factor, from the [place] facility where the Encounter took place. Date/Time Current Smoking Status Comment Facil ity Feb 22, 2019 10:40 AM PR-TOBACCO QUIT < 1 YEAR [facility] Tobacco Use History This section includes a history of the smoking, or tobacco-related health factors, that were collected on or before the date of the Encounter. The data comes from the [place] facility where the Encounter took place. Date/Time Smoking Status/Tobacco Use Comment F acyosi Feb 22, 2019 10:40 AM PR-TOBACCO QUIT < 1 YEAR [facility] Encounter Notes: All associated encounter notes This section contains the clinical notes associated to the Encounter. Date/Time Encounter Note(s) Provider Source Apr 18, 2024 07:52 AM AUDIOLOGY NOTE: LOCAL TITLE: AUDIOLOGY HEALTH SAW REPAIRER STANDARD TITLE: AUDIOLOGY NOTE DATE OF NOTE: APR 18, 2024@07:52 ENTRY DATE: APR 18, 2024@07:52:22 AUTHOR: ROSALIO GIRON COSIGNER: TANIASILVIANOSHANI URGENCY: STATUS: COMPLETED April 18, 2024 History/Background: [place] was seen for a hearing aid follow up, unaccompanied. The [place] presented today for routine hearing aid maintenance. The [place] noted the right hearing aid does not seem to be as loud as the left. Hearing aids: [employer] AI POWER + BTEs Serial Numbers: [id number] Battery Size: 13 Date Issued: 04/16/2022 Hearing aid check: Both hearing aids were cleaned and checked. Initial inspection revealed cerumen blocking both tubes. Replaced TRS tubes, tonehooks, malcolm covers and batteries. Biologic check was good. The noticed an immediate improvement in sound quality post maintenance. Otoscopy: Non-occluding hard cerumen bilaterally. Advised the [place] to contact his pcp team for cerumen removal. Plan: RTC in 5 months for routine hearing aid maintenance. Suicide Screen: C-SSRS Screening Bryant-Suicide Severity Rating Scale (C-SSRS Screener) 1. Over [...] other questions. /jed/ ROSALIO GIRON Audiology Health Director Custom Signed: 04/18/2024 13:20 /jed/ Torie Pimentel, [facility] Prism Measurer Cosigned: 04/18/2024 13:49 ROSALIO GIRON [place] [facility]
--- OUTSIDE RECORDS SUMMARY | 2024-06-13 08:53 | XMS_ITS | Continuity of Care Document ---
Author Name [facility] Organization [facility] Care Team Providers Care Drop Machine Operator Name Role Phone [facility] Unavailable Unavailable Problems Combined list of problems from Department of [facility] and [facility] facilities. It does not include entries that were removed or entered in error. Problem Status Onset Date Problem Type Date of Resolution Comments Source Carcinoma of lung Active Condition Mar 03, 2019 Entered By: VIRGINIA PEREZ Comment: patient has right upper lobe lobectomy in 2012 [facility] Chronic obstructive lung disease Active Condition Mar 03, 2019 Entered By: VIRGINIA PEREZ Comment: stage 2 [facility] Hearing loss Active Condition [facility] Diagnosis: ICD-10-CM Z46.1 Encounter for fitting and adjustment of hearing aid Active Diagnosis [facility] Medications Combined list of outpatient medications from Department of Defense and [facility] facilities.Medications provided include 1) outpatient medications from the last 15 months, and 2) patient-reported medications. Medication Details Route Status Patient Instructions Prescription Expires Prescription Number Last Dispense Date Ordering Provider Order Date Order Qty Source FLUTICASONE 100/UMECLID INIUM 62.5/VILANT JUANIS 25MCG/ACTUA T INH,30 INHALE 1 INHALATI ON BY MOUTH ONCE DAILY RESPIR ATORY (INHAL ATION) ACTIVE ALAYNA PEREZ 2019 [facility] Immunizations Combined list of available immunizations from the Department of Defense and [facility] facilities. Immunization Series Date Given Administered By Site Reaction Lot Number CVX Code Drug International Accounting Manager Status Comments Source COVID-19 ([employer]), MRNA, LNP-S, PF, 30 MCG/0.3 ML DOSE 2 2020 208 complet ed PFR; [id number]; 1 [facility] COVID-19 (PFIZER), MRNA, LNP-S, PF, 30 MCG/0.3 ML DOSE 1 2020 208 complet ed PFR; [id number]; 1 [facility] INFLUENZA, SEASONAL, INJECTABLE 2018 141 complet ed [facility] Encounters Combined list of: 1) Encounters from Department of Veterans Affairs facilities going backup to the last 18 months, not all [place] inpatient encounters are included; 2) Encounters from the Department of [facility] facilities going backup to 280 months. Location Location Details Encounter Type Encounter Number Reason For Visit Attending Provider ADM Date DC Date Status Disposition Source [facility] HEARING AID CHECK BOTH EARS [id number] Diagnos is: ICD-10- CM Z46.1 Encount er for fitting and adjustm ent of hearing aid ADAM BURROUGHS L 05[facility] HEARING AID REPAIR/MOD IFYING [id number] Diagnos is: ICD-10- CM Z46.1 Encount er for fitting and adjustm ent of hearing aid KRISTINA HEN L 11/08 [facility] HEARING AID REPAIR/MOD IFYING [id number] Diagnos is: ICD-10- CM Z46.1 Encount er for fitting and adjustm ent of hearing aid YEYOFLORSILVIANO,KRISTINA UREN L 04/18 [facility] Social History Combined list of available smoking, tobacco, and other social history from Department of Defense and Veterans Affairs facilities. Social History Type Response Date Comment Sourc e Tobacco smoking status NHIS PR-TOBACCO QUIT < 1 YEAR 02/22/2019 [facility] History of tobacco use PR-TOBACCO FORMER USER 02/22/2019 [facility] Plan of Care List of future care activities from Department of Veterans Affairs facilities. Additional future care activities may be listed in the Assessment and Plan section. Date/Time Care Activity Care Activity Detail Facili ty 09/19/2024 AMBULATORY - REHAB MEDICINE [facility]
--- OUTSIDE RECORDS SUMMARY | 2024-06-13 08:53 | XMS_ITS | Data Portability ---
Author Organization [facility], [facility] Address [address] [place] [address] Care Team Providers Care Logistics Management Specialist Name Role Phone FRANKLIN RODRIGUEZ Primary Care Provider [phone] Assessment No assessment recorded. 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 Procedures Surgical History Date Name Laterality Status Provider Name and Address Organization Details Recorded Time 5 Hip Kenalog 1cc Injection, Bilateral completed Dav Kathleen PA-C [address], [place], [address], [facility] 03/31/2024 07:51:53 4 PM Shoulder Kenalog 2cc Injection Unilateral cancelled Hema Sierra MD [address], [place], [address], [facility] 11/26/2023 07:55:02 4 Hip Kenalog 1cc Injection, Bilateral completed Dav Kathleen PA-C [address], [place], [address], [facility] 11/26/2023 16:22:53 4 Sports Shoulder 4&1 completed Dav Kathleen PA-C [address], [place], [address], [facility] 11/26/2023 16:22:38 Imaging Results None recorded. Procedure Notes None recorded. Medical Equipment None Reported. Allergies Allergen ID Allergen Name Allergen Category Reaction Reaction Severity Criticality Documentation Date Start Date Code Code System Note Provider Name and Address Organization Details Recorded Time 93063 Zoloft medicatio n Not available Not available Not available 04/20/20232005 44905 RxNorm Not Available [facility] 4 15:13:16 38386 Product containin g penicilli n (product) medicatio n Not available Not available Not available 04/20/20232021 79493 8001 SNOMED Not Available [facility] 4 15:13:16 Medications Name Sig Start Date [...] Available oxycodone HCl-oxycodo ne-ASA RX GIVEN AT [facility], AT TIME OF SURGERY 03/01 completed Statu [...] 11/26/2023 180.34 cm TESSA Sullivan [address], [place], [address], [place] [facility] 11/26/2023 14:34:00 Date Recorded Body height Body mass index (BMI) Body weight Provider Name and Address Organization Details Last Updated DateTime 03/28/2024 180.34 cm 24.7 kg/m2 70317.85 g Selena Farias [facility] 03/28/2024 13:59:10 Social History None recorded. Functional Status None recorded. Mental Status None recorded. Family History Nothing Reported. Medical History No medical history recorded. Past Encounters Encounter ID Performer Location Encounter Start Date Encounter Closed Date Diagnosis/Indication Diagnosis SNOMED-CT Code Diagnosis ICD10 Code Diagnosis Note [id number] FRANCESCA Sullivan [address] [place] [address] 11/26/2023 14:18:48 12/22/2023 09:07:04 Impingement syndrome of right shoulder region 4042694249 58024 M75.41 Trochanter ic bursitis of right hip 6180068334 73151 M70.61 Trochanter ic bursitis of left hip 1630886640 49745 M70.62 [id number] FRANCESCA Sullivan [address] [place] [address] 03/28/2024 13:48:53 04/12/2024 09:25:02 Trochanteric bursitis of left hip 4089831675 76694 M70.62 Trochanter ic bursitis of right hip 0487583965 70818 M70.61 Health Concerns Section Related Observation LastModified by Organization Detai ls LastModified Time None Recorded Concern Status LastModified by Organization Details LastModified Time None Recorded Advance Directives Directive None Recorded Payers Encounter Date Sequence Insurance Name Policy Number Policy Yu Covered Member ID Yu Member ID Guarantor Name 11/26/2023 1 [place] [employer] Steven Ziegler [id number] Steven Ziegler 11/26/2023 2 [place] [id number] Steven Ziegler [id number] Steven Ziegler 03/28/2024 1 [place] Steven Ziegler [id number] Steven Ziegler 03/28/2024 2 [place] [id number] Steven Ziegler [id number] Steven Ziegler Notes Date Note Type Note [...] and follow-up as needed. Dav Kathleen PA-C [address] [place] [address] [address], [place], [address], [facility] 11/26/2023 16:23:38 03/28/2024 text/html I am seeing the patient today under the supervision of Dr. Wade who was available but who did not see the patient. Reason For VisitThe patient presents today for [...] follow-up as needed. Dav Kathleen PA-C [address] [facility] [address], [place], [address], [place] [facility] 03/31/2024 07:52:12
--- OUTSIDE RECORDS SUMMARY | 2024-06-13 08:53 | XMS_ITS ---
Author Name [facility] [place] [facility] Address [address] [place] [address] Care Team Providers Care Uniform Patrol Police Officer Name Role Phone RYAN PEREZ Primary Care [...] SUPPLEMEN NAA MEDEX 2 Aug 16, 2014 [id number] CHELLE MENDOZA HARD PATIENT [facility] MEDICARE SUPPLEMEN NAA [facility]LE [facility] Aug 16, 2014 [id number] CHELLE MENDOZA HARD PATIENT MEDICARE (WNR) MEDICARE (M) PART B June 16, 2012 PART B [id number] [id number] CHELLE MENDOZA HARD PATIENT MEDICARE (WNR) MEDICARE (M) PART A Feb 16, 2011 PART A [id number] CHELLE MENDOZA PATIENT Selected Encounter This section includes the information on record at [place] for the Encounter. Date/Time Encounter Type Encounter Description Reason Provider Source Nov 09, 2023 01:00 PM HEARING AID REPAIR/MODIFYIN G AUDIOLOGY ICD-10-CM Z46.1 Encounter for fitting and adjustment of hearing aid SHANI HE Sade Encounter Template Text not used by [place] Assessments - Encounter Diagnoses This section includes the primary and secondary diagnoses documented for the Encounter. Date/Time Primary/Secondary Diagnosis Diagnosis Name Provider Source Nov 09, 2023 01:23 PM PRIMARY Encounter for fitting and adjustment of hearing aid NAILA GIRON RUMA [facility] Nov 09, 2023 01:23 PM SECONDARY Sensorineural hearing loss, bilateral NAILA GIRON RUMA [facility] Plan of Treatment: Future Appointments (+ 6 months) and Future Tests (+/- 45 days) The Plan of Treatment section includes future care activities for the patient [facility] [place] [facility]. This section includes future appointments and future orders which are active, pending or scheduled. Future Appointments This section includes appointments that were scheduled to occur 6 months from the date of the Encounter, up to a maximum of 20 appointments. The data comes from all [place] treatment facilities. Appointment Date/Time Appointment Type Appointme nt Facility Name Apr 18, 2024 01:00 PM AMBULATORY - REHAB MEDICIN E [facility] Social History: Smoking Status (Most current) and Tobacco Use (All prior to encounter date) This section includes the most current, and the historical, smoking and tobacco- related health factors from the [place] facility where the Encounter took place. Current Smoking Status This section includes the most current smoking, or tobacco-related health factor, from the [place] facility where the Encounter took place. Date/Time Current Smoking Status Comment Facil ity Feb 22, 2019 10:40 AM [place]-TOBACCO QUIT < 1 YEAR [facility] Tobacco Use History This section includes a history of the smoking, or tobacco-related health factors, that were collected on or before the date of the Encounter. The data comes from the [place] facility where the Encounter took place. Date/Time Smoking Status/Tobacco Use Comment F acyosi Feb 22, 2019 10:40 AM [place]-TOBACCO QUIT < 1 YEAR [facility] Encounter Notes: All associated encounter notes This section contains the clinical notes associated to the Encounter. Date/Time Encounter Note(s) Provider Source Nov 09, 2023 07:55 AM AUDIOLOGY NOTE: LOCAL TITLE: AUDIOLOGY HEALTH SOLE LEVELER MACHINE STANDARD TITLE: AUDIOLOGY NOTE DATE OF NOTE: NOV 09, 2023@07:55 ENTRY DATE: NOV 09, 2023@07:55:44 AUTHOR: ROSALIO GIRON COSIGNER: SHANI HE URGENCY: STATUS: COMPLETED November 09, 2023 History/Background: [place] was seen for a hearing aid follow up, unaccompanied. The [place] presented today for routine maintenance on his hearing aids. Hearing aids: [employer] EVOLV AI POWER + BTEs Serial Numbers: [id number] Battery Size: 13 Date Issued: 04/16/2022 AND Hearing aids: [employer] IQ [id number] Power+ BTEs Serial Numbers: [id number] Battery Size: 13 Date Issued: 04/22/2019 Hearing aid check: Both sets of hearing aids were cleaned and checked. Replaced TRS tubes, tonehooks, malcolm covers and batteries. Biologic check was good. Battery supply was ordered today per Veterans request. Plan: The was scheduled for routine maintenance on 04.18.2024 @ 1300. RTC ordered entered. /jed/ ROSALIO GIRON Audiology Health Um Specialist Signed: 11/09/2023 13:25 /jed/ Torie Pimentel CCC-A Apple Peeler Operator Cosigned: 11/09/2023 14:29 Receipt Acknowledged By: 11/09/2023 14:44 /jed/ CAROLYN HAHN SUPERVISORY DAIRY SCIENTIST ROSALIO GIRON [facility]
--- OUTSIDE RECORDS SUMMARY | 2024-06-13 08:53 | XMS_ITS | Clinical Summary ---
Author Organization [employer] [facility] it Address [address] [place] [address] Care Team Providers Care Private Investigator Surveillance Name Role Phone Andriy Rice MD Primary Care Provider [phone] Medical History Medical History Date Comments Other [...] Comments DTaP,Tdap,and Td Vaccines (1 - Tdap) 1965 Hepatitis A Vaccines (1 of 2 - Risk 2-dose series) 1965 Zoster Vaccines (1 of 2) 1996 Pneumococcal Vaccine: 50+ Ye ars (2 of 2 - PCV) 07/12/2005 07/12/2004 Hepatitis B Vaccines (1 of 3 - Risk 3-dose series) 2006 RSV Immunization Adult Patie nts (1 - 1-dose 75+ series) 2021 Cholesterol Screening (Lipid Panel) 01/19/2022 Colorectal Cancer Screening: Stool Based Tests (FOBT/FIT) 01/19/2022 Depression Screening 01/19/2022 Falls Risk Assessment 01/19/2022 Hepatitis C Screening 01/19/2022 Social Influencers of Health Screening 01/19/2022 COVID-19 Vaccine (2023-2 5 season) 2023 Influenza Vaccine (Season Ended) 2024 HIB Vaccines Aged Out No longer eligi [...] age to complete this topic Meningococcal B Vaccine Aged Out No l onger eligible based on patient's age to complete this topic RSV Immunization Patients Un damian 20 months Aged Out No longer eligible b ased on patient's age to complete this topic Varicella Vaccines Aged Out No longer eligible based on patient's age to complete this topic Advance Directives Documents on File Type Date Recorded Patient Interior Design Instructor Expl anation Health Care Decision (hx) 07/11/2017 AD GUARDADO DIRECTIVE Health Care Decision (hx) 07/11/2017 AD GUARDADO DIRECTIVE Health Care Decision (hx) 07/11/2017 AD GUARDADO DIRECTIVE Health Care Decision (hx) 07/11/2017 AD GUARDADO DIRECTIVE Health Care Decision (hx) 07/11/2017 AD GUARDADO DIRECTIVE Care Teams Private Investigator Surveillance Relationship Specialty Start Date End Date Andriy Rice MD [address] [place] [address] PCP - General Internal Medicine 12/15/12
[2024-06-13] MEDS: Lactated Ringers 1,000 ML 80 ML IVCONT (09:55)
--- NOTE | 2024-06-13 11:14 | MHC.SHP ---
Pre-Procedural Eval Section A - 24 Hr Update-Section A only Date of Service: 06/13/24 The patient is an INPATIENT: No Changes since office visit: No Cold of Flu in the past 2 weeks, No New Medical Problems, No Changes in Medication and No Patient answered all questions The patient has been examined within 24 hours of the surgical procedure. The History & Physical has been completed within 30 days and I have reviewed it.: Yes Section B - Complete if H&P > 30 days Chief Complaint: Stress incontinence (female) (male) Details of Present Illness: Male sling placement with cystoscopy Relevant Family History (Specify if Yes): No Relevant Social History: Tobacco Use Present Medications: see Short Stay Collaborative assessment Medical History: No relevant PMH History of Previous Operations: Relevant previous surgery/procedure and date(s) Allergies: Allergies Allergy/AdvReac Type Severity Reaction Status Date / Time Penicillins Allergy Mild Unknown Verified 06/13/24 09:38 Review of Systems Sugical H&P ROS: Negative: Constitution, Cardiovascular, Respiratory, Neurological, Psychiatric, Hem-Onc, Allergic/Immunologic, Gastrointestinal, Genitourinary, Musculoskeletal, Integumentary, Endocrine and Eyes/Ears/Nose/Throat Exam Surgical H&P Exam: Normal: HEENT, Normal: Heart, Normal: Lungs, Normal: Extremities, Normal: Abdomen, Normal: Skin and Normal: Neurological Plan Diagnosis/Plan: Unchanged (Cystoscopy with male sling placement) I have reviewed the history and physical and performed a pertinent physical examination on my patient. No changes have occurred unless specified. Time Spent With Patient Time: Total time managing care of this patient today ____ minutes.
--- NOTE | 2024-06-13 11:21 | HO.ANESPROP2 ---
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 Walks on level ground w no problem. Family History Family history of problems with anesthesia: No Surgical History Surgical History History of lung surgery History of arthroplasty of right shoulder History of bowel resection History of tonsillectomy History of eye surgery S/P TURP (status post transurethral resection of prostate) History of Problems with Anesthesia: No Social History Social History (Updated 02/03/24 @ 11:37 by PRESTON Gilbert) Household Members Other:: granddaughter and her friend Housing Other:: mobile home Are you a primary foster care social worker to a significant other at home: No Do you presently have visiting nurse or other home services: No Alcohol intake: former Comment: uses w/c for long distances. Patient Tobacco Use Status: Former Tobacco user Substance Use Type Other:: former marijuana user Have you been hit, kicked, punched, or otherwise hurt by someone within the past year? If so, by whom?: No Are you DNR?: No Advance Directives: No Advance Directives Information Provided: Yes Poor oral hygiene: Yes Meds Allergies Allergy/AdvReac Type Severity Reaction Status Date / Time Penicillins Allergy Mild Unknown Verified 06/13/24 09:38 Active Medications: Current Medications Lactated Ringer's (Lr) 1,000 mls @ 80 mls/hr IVCONT .[id number] MEGHANA Last Admin: 06/13/24 09:55 Dose: 80 mls/hr Home Medications ?Medication ?Instructions ?Recorded ?Confirmed ?Last Taken ?Type atorvastatin 80 mg tablet 80 mg PO DAILY 02/09/24 06/09/24 Unknown History calcium 600 mg (as 1 tab PO BID 02/09/24 06/09/24 Unknown History carbonate)-vitamin D3 10 mcg (400 unit) tablet carvedilol 6.25 mg tablet 6.25 mg PO BID 02/09/24 06/09/24 Unknown History chlorthalidone 25 mg tablet 25 mg PO DAILY 02/09/24 06/09/24 Unknown History enzalutamide 40 mg capsule (Xtandi) 160 mg PO DAILY 02/09/24 06/09/24 Unknown History glycopyrrolate 9 mcg-formoterol 2 inh inhalation BID 02/09/24 06/09/24 Unknown History 4.8 mcg HFA aerosol inhaler (BeRavnphere) isosorbide mononitrate 30 mg 30 mg PO DAILY 02/09/24 06/09/24 Unknown History tablet,extended release 24 hr nitroglycerin 0.4 mg sublingual 0.4 mg sublingual ONCE 02/09/24 06/09/24 Unknown History tablet albuterol sulfate 90 mcg/actuation 2 puff inhalation Q4H PRN wheezing 06/09/24 06/09/24 06/13/24 History aerosol inhaler Exam Height,Weight and Vital Signs: Height 5 ft 10.87 in Weight 81 kg Last Vital Signs Temp 98.0 F 06/13/24 10:11 Pulse 82 06/13/24 10:11 Resp 18 06/13/24 10:11 BP 156/91 H 06/13/24 10:11 Pulse Ox 97 06/13/24 10:11 O2 Del Method Room Air 06/13/24 10:11 Airway Mallampati Class: II TM Dist: <=3cm Neck ROM: Full Denture: Upper and Lower Heart: ok. see above. cardiology note and pulmon note reviewed. Lungs: ok. see above Assessment and Plan Assessment Anesthesia Assessment: Anesthesia Plan Discussed and Chart Reviewed Final Anesthetic Review Family History of Problems with Anesthesia: No History of Problems with Anesthesia: No NPO: Yes ASA Class: III Final Preanesthetic Review: No Changes in Pt Med Stat, Meds/Allgs Chart Reviewed, Consent Obtained/Reviewed and Anes Risks/Benef Reviewed Patient Risk: Intermediate Procedure Risk: Low Anesthetic Plan Anesthetic Plan: GA and Agree w/ Assess. and Plan Disposition: Standard PACU
[2024-06-13] MEDS: Acetaminophen 1,000 MG/100 ML PIGGYBACK 400 MG IV (12:05)
--- NOTE | 2024-06-13 14:05 | W.PM.OPN ---
Operative Note Operative Note Date of Service: 06/13/24 Narrative: PreOperative Diagnosis: male stress incontinence Post Operative Diagnosis: male stress incontinence Procedure: Advance male sling Surgeon: Dr Brian Fuchs Anesthesia: general Indications for procedure: Male stress incontinence following TURP and partial course of external beam radiation for prostate cancer total of 10 of 40 treatments. 2-4 pads per day, no leakage at night. Office cystoscopy shows moderate ability for tissue apposition. Procedure: After informed consent was verified the patient was brought to the operating room and placed in a supine position. Anesthesia was administered per protocol. The patient was placed in a dorsal lithotomy position. Legs aligned to patient's shoulders bent at 90 degrees with slight spread. He was prepped and draped in a sterile fashion. Safety pause time-out was performed. Antibiotics had been given including 2 g Kefazolin per protocol. Six[place] Medel catheter placed on the field and bladder drained. Scrotum and Medel catheter elevated with IO band. 5 cm lobe midline perineal incision was marked. Local anesthetic was infiltrated through the skin. Incision was made and taken down through Colles fascia. A [place] retractor was used to provide adequate exposure. Dissection was performed releasing the bulbar spongiosis muscle from its overlying tissue. This was freed laterally, proximally and distally. At the distal edge the junction between the bulbar muscle and corpus spongiosum was defined. The bulbous spongiosis muscle was markedly atretic. The bubble spongiosis muscle was then divided starting distal and running proximally with blunt dissection. Careful dissection was performed laterally to release any connecting tissue from the corpus spongiosum. Blunt dissection was used to move both lateral and proximally. The distal aspect of the central tendon was identified by lifting the proximal bulb anteriorly to provide counter traction. The initial dissection of the central tendon was performed. A 4-0 Vicryl suture was placed on the distal aspect of the central tendon insertion for identification. Urethra was mobilized incising fibrous portion of central tendon for approximately 3 to 4 cm of proximal displacement. Care was taken regarding the proximal midline vessels feeding into the corpus spongiosum. At this point the internal aspect of the obturator canal was palpable. This was defined by the symphysis pubis above in the issue of pubic ramus laterally. The insertion of the adductus longus tendon on to the pubis was palpated and marked on each side with a marking pen. The spot of insertion was 1 fingerbreadth below the insertion of the adductor longus tendon lateral to the ischiopubic ramus. Local anesthetic was infiltrated on each side. An [place] clamp was placed on the edge of the bulbous spongiosis muscle in order to assist with the traction away from the side of trocar passage. On the patient's left side the helical trocar was held a 45 degree angle to the midline with the trocar against the patient's buttock. The index finger of the left hand was placed in the perineal incision. The index finger was placed at the apex of the obturator canal. The issue of pubic ramus was palpable. The finger was placed to protect the corpus from inadvertent trocar injury. The trocar was advanced and 2 pops were felt as the trocar passed through the obturator externus and obturator internus muscle layers. After the 2nd pop the trocar was turned approximately 1/4 turn to bring the needle on to the index finger. As the trocar was brought through the fascia the handle was dropped in a vertical fashion to bring out the needle as high as possible in the apex of the obturator fossa. Once the trocar was delivered the mesh was attached with the blue dots facing out and brought back through the stab incision. A similar procedure was performed on the left side and the mesh brought out through the skin incision. The mesh was attached to the corpus spongiosum via 3 separate 4-0 Vicryl sutures. The proximal edge of the mesh was aligned with the initial central tendon marking suture prior to being secured to the corpus spongiosum. The distal edge of the mesh was likewise attached to the corpus spongiosum. 1-0 Prolene had been placed through the lateral aspect of the mesh in order to help stabilize during removal of the plastic covering. The protective sheath and outer plastic sheath were removed. The sheath was irrigated with antibiotic solution. The mesh was stabilized by holding the mesh using the Prolene suture.. At this point the sheath was removed. This happened after the sheath was divided below the blue addie located at the end of the sling. Initially this was performed on the left side and subsequently repeated on the right side. The overlying bulbocavernosus muscle was closed with running 3-0 Vicryl suture. Irrigation was performed. Hemostasis was adequate. A 2nd intervening layer of tissue was closed using a running 3-0 Vicryl. Skin was closed with a running 4-0 Monocryl. Incisions were cleaned and dried. Glue was placed and a final dressing placed. Prior to closure of the incision a 14 [place] Medel catheter was placed into the bladder which remain overnight. He tolerated the procedure well was extubated in operating room and transferred in stable condition to the recovery area. Pathology: None Drains: Medel
[2024-06-13] MEDS: oxyCODONE HCl Immed Release 5 MG TABLET PO (15:17)
== END 2024-06-13 15:52 | disposition home or self-care (01) ==
PROVIDERS: PCP Internal Medicine; Visit Provider Urology
PROC: (CPT 53440; principal; 2024-06-13 11:20)
DX: N39.3 Stress incontinence (female) (male) (principal); N99.89 Other postprocedural complications and disorders of genitourinary system; C61 Malignant neoplasm of prostate; Z92.3 Personal history of irradiation; N32.81 Overactive bladder; N48.6 Induration penis plastica; N40.1 Benign prostatic hyperplasia with lower urinary tract symptoms; N32.0 Bladder-neck obstruction; J44.9 Chronic obstructive pulmonary disease, unspecified; G51.0 Bell's palsy; Z79.899 Other long term (current) drug therapy; Z88.0 Allergy status to penicillin; Z98.890 Other specified postprocedural states; Z87.891 Personal history of nicotine dependence
CPT/HCPCS: 53440; C1771; J0131; J0690; J1100; J1580; J2003; J2405; J2704; J2795; J3010

== ENCOUNTER → 2024-06-13 08:42 | Outpatient (BNV) | payer MEDICARE, SELFPAY | PROVIDERS: PCP Internal Medicine; Visit Provider Urology | DX: N39.3 Stress incontinence (female) (male) (principal) | CPT/HCPCS: 53440 ==

== ENCOUNTER → 2024-06-15 13:04 | Outpatient (BNVA) | payer MEDICARE, SELFPAY | PROVIDERS: PCP Internal Medicine; Visit Provider Urology ==

== ENCOUNTER → 2024-06-21 09:21 | Outpatient (BNVA) | payer MEDICARE, SELFPAY | PROVIDERS: PCP Internal Medicine; Visit Provider Urology | DX: N39.3 Stress incontinence (female) (male) (principal); N99.89 Other postprocedural complications and disorders of genitourinary system | CPT/HCPCS: 51798 ==

== ENCOUNTER 2024-07-08 10:04 | Outpatient (AMB) | payer MEDICARE, SELFPAY ==
--- NOTE | 2024-07-08 10:33 | A.OFFVIS_ITS ---
Intake Visit Reasons: Male advance sling, follow up Intake Note: Patient is present for MALE [facility] F/U Urology Medication:NONE Antibiotic Allergy:PENICILLINS Blood Thinner:NONE Promotions Manager Required: No Allergies Penicillins Allergy (Mild, Verified 07/08/24 10:36) Unknown HPI Comments Details: Steven is a pleasant male. He is a patient of Dr Rice. He is seen for the following urologic conditions. - urinary incontinence - advanced prostate cancer Four week follow-up male sling Significant reduction in pad use Using 1-2 per day 28 pad packet has lasted for whole month Upcoming GnRH Did discuss typical after 2-3 years on antiandrogen to hold therapy Will discuss again in six-month Urinary incontinence following BPH Procedure Using 3-4 pads per day Had been offered artificial sphincter placement by another urologist Based on the patient's age, manual dexterity, and future care needs use of an artificial sphincter in the over 75-year-old age group is associated with increased risk of adverse outcomes and difficulty with sphincter cycling We discussed artificial sling If he has any coaptation of his external prostatic sphincter the sling is likely to drop pad use from 3-4 down to 1-2 Elicia ROCA, Sharon B, Vannessa Borrero. AdVance male sling in irradiated patients with stress urinary incontinence. Can J Urol. 2010;18(6):6013-7. PMID: [id number]. 06/10 male sling procedure Advanced prostate cancer - [facility] Managed on combination antiandrogen and GnRH - currently Enzalutamide Obtains antiandrogen through [facility] oncology Initially had been treated with radiation but only tolerated 12 doses [facility] Medical History (Updated 07/08/24 @ 11:06 by Brian Fuchs MD) Pulmonary nodules GERD (gastroesophageal reflux disease) HTN (hypertension) CAD (coronary artery disease) Hepatocellular carcinoma Lung cancer Alcohol abuse, in remission Gonzalez's palsy Migraine headache COPD (chronic obstructive pulmonary disease) Hearing loss Warts UTI (urinary tract infection) H/O urinary retention History of urinary frequency Prostate cancer Peyronie's disease Dysuria Nodular prostate BPH loc w urin obs/LUTS Constipation Bladder outlet obstruction Hyperactivity of bladder Surgical History History of lung surgery History of arthroplasty of right shoulder History of bowel resection History of tonsillectomy History of eye surgery S/P TURP (status post transurethral resection of prostate) Social History (Updated 02/03/24 @ 11:37 by PRESTON Gilbert) Household Members Other:: granddaughter and her friend Housing Other:: mobile home Are you a primary direct care specialist to a significant other at home: No Do you presently have visiting nurse or other home services: No Alcohol intake: former Patient Tobacco Use Status: Former Tobacco user Review of Systems Const Denies chills and Denies fever(s) Card Reports no additional complaints and Denies syncope Resp Denies cough GI Denies abdominal pain and Denies heartburn Reports as per HPI and Denies change in libido Neuro Denies syncope Psych Denies change in libido Endo Denies change in libido Physical Exam Const General: cooperative, healthy appearing, comfortable and no acute distress Orientation/consciousness: patient oriented x3 HEENT Face and sinus: Yes normal facial exam Mouth: moist mucous membranes Neck Neck: Yes normal visual inspection, Yes full ROM and Yes trachea midline Chest Chest palpation & inspection: normal inspection of the chest Resp Effort & Inspection: normal respiratory effort, able to speak in complete sentences and no respiratory distress GI Inspection: Yes normal to inspection Back/Spine/Pelvis Cervical Spine: normal cervical lordosis Thoracic/Lumbar Spine: thoracic and lumbar spine normal to inspection Skin General skin exam: no rashes or lesions noted Neuro General: patient oriented x3, gait normal, tone normal and moves all extremities Extrem General: Yes normal to inspection and Yes capillary refill normal Assessment & Plan Assessment & Plan (1) Urinary incontinence: Code(s): R32 - Unspecified urinary incontinence Category: Medical (2) Stress incontinence after surgical procedure: Code(s): N99.89 - Other postprocedural complications and disorders of genitourinary system; N39.3 - Stress incontinence (female) (male) Category: Medical (3) Prostate cancer: Code(s): C61 - Malignant neoplasm of prostate Category: Medical Plan Six-month follow-up office PVR Orders: Orders AMB Urinalysis Automated Today Z13.9 - Encounter for screening, unspecified Patient Instructions: This note is constructed using voice recognition software. While every effort has been made to ensure accuracy drywall finishing foreman errors may have been included. Imaging studies, laboratory and physical exam results were discussed and reviewed in detail. No major barriers to patient understanding were identified. An opportunity to ask questions regarding the treatment plan was provided. All questions were answered. The patient expressed understanding and agreement with the above treatment plan. The patient is aware they should contact our office by phone for worsening of their current condition or the appearance of new urologic symptoms. Compliance is encouraged with any medications and followup testing that is ordered. It is a privilege to participate in the urologic care of your patient. If you have any questions or concerns regarding treatment for the above conditions, or other urologic issues, please do not hesitate to contact me. The office telephone contact is [phone]. Sincerely, Dr Brian Fuchs MD, [facility] - Urology Compassionate Specialist Care for the Genitourinary System Coding Level of Care Code Est Pt Level 3 (58821) Complex EM visit Add On G2211 Diagnoses Urinary incontinence R32 Stress incontinence after surgical procedure N99.89; N39.3 Prostate cancer C61
== END 2024-07-08 11:07 | disposition home or self-care (01) ==
LOC: HO.HUSH 10:04
PROVIDERS: PCP Internal Medicine; Visit Provider Urology
DX: N99.89 Other postprocedural complications and disorders of genitourinary system (principal); N39.3 Stress incontinence (female) (male); C61 Malignant neoplasm of prostate; Z13.9 Encounter for screening, unspecified
CPT/HCPCS: 99024

== ENCOUNTER → 2024-07-08 10:04 | Outpatient (BNVA) | payer MEDICARE, SELFPAY | PROVIDERS: PCP Internal Medicine; Visit Provider Urology | DX: N99.89 Other postprocedural complications and disorders of genitourinary system (principal); N39.3 Stress incontinence (female) (male); C61 Malignant neoplasm of prostate | CPT/HCPCS: 81003; 99212 ==